=== PATIENT | male | born 1945 | race Asian ===

== ENCOUNTER 2019-11-14 06:59 | Day surgery (SDC) | payer MEDICARE, MEDICAID ==
[~2019-11-14] VITALS: Ht 147.3 cm; Wt 49.9 kg
[2019-11-14 07:46] LABS: BASOPHILS % 0.2 % (0.0-2.0); EOSINOPHILS % 14.6 % (0.0-5.0); HEMATOCRIT. 45.4 % (42.0-52.0); HEMOGLOBIN. 15.2 g/dL (14.0-18.0); LYMPHOCYTES % 39.7 % (20.0-50.0); MEAN CORPUSCULAR HEMOGLOBIN 29.2 pg (28.0-32.0); MEAN CORPUSCULAR VOLUME 87.1 fL (80.0-94.0); MEAN PLATELET VOLUME 8.7 fl (7.4-10.4); NEUTROPHILS % 40.5 % (40.0-76.0); PLATELET 248 x1000/uL (130-400); RED BLOOD CELL COUNT 5.21 mill/uL (4.7-6.1); RED CELL DISTRIBUTION WIDTH 13.6 % (11.6-14.6)
[2019-11-14 07:47] LABS: CLARITY URINE CLEAR (CLEAR); COLOR URINE YELLOW (YELLOW); KETONES URINE NEGATIVE (NEGATIVE); LEUKOCYTE ESTERASE URINE NEGATIVE (NEGATIVE); NITRITE URINE NEGATIVE (NEGATIVE); OCCULT BLOOD URINE NEGATIVE (NEGATIVE); PROTEIN URINE NEGATIVE (NEGATIVE); SPECIFIC GRAVITY URINE 1.007 (1.005-1.030); UROBILINOGEN URINE 0.2 E.U./dL (0.2-1.0)
[2019-11-14 07:52] LABS: CHLORIDE 106 mEq/L (98-107)
[2019-11-14 07:55] LABS: INR 0.9; PARTIAL THROMBOPLASTIN TIME 27.2 sec (23.4-31.0)
[2019-11-14] MEDS ORDERED: BACITRACIN 15GM TUBE TOP ONE (07:58)
[2019-11-14] MEDS ORDERED: LIDOCAINE HCL 1% 20ML VIAL (Pyxis) INJ ONE (07:58)
[2019-11-14] MEDS ORDERED: THROMBIN (BOVINE) 5000 UNITS/VIAL TOP ONE (07:59)
[2019-11-14] MEDS ORDERED: BUPIVACAINE HCL/PF 0.5% (5MG/ML) 10ML ONE (07:59)
[2019-11-14] MEDS ORDERED: BACITRACIN 50,000 UNITS/VIAL ONE (07:59)
[2019-11-14] MEDS ORDERED: LACTATED RINGERS 1,000 ML IV SCH (08:00)
[2019-11-14] MEDS ORDERED: SKIN ADHESIVE 0.7 GM EA TOP ONE (08:03)
[2019-11-14] MEDS ORDERED: HEPARIN SODIUM 1,000 UNIT/1ML VIAL IV ONE (08:03)
[2019-11-14] MEDS ORDERED: CEFAZOLIN 1000MG PREMIX 50 ML IV NR (08:30)
[2019-11-14] MEDS ORDERED: ONDANSETRON HCL 4MG/2ML INJ ONE (08:57)
[2019-11-14] MEDS ORDERED: MIDAZOLAM HCL 2 MG/2 ML VIAL ONE (08:57)
[2019-11-14] MEDS ORDERED: DEXAMETHASONE 4MG/ML 1ML VIAL ONE (08:57)
[2019-11-14] MEDS ORDERED: GLYCOPYRROLATE 0.2 MG/ML 2ML VIAL ONE ×2 (08:57)
[2019-11-14] MEDS ORDERED: ROCURONIUM BROMIDE 10MG/ML VIAL 5ML IV ONE (08:57)
[2019-11-14] MEDS ORDERED: PROPOFOL 200MG/20ML VIAL IV ONE (08:57)
[2019-11-14] MEDS ORDERED: FENTANYL CITRATE/PF 50MCG/ML 2ML VIAL ONE (08:57)
[2019-11-14] MEDS ORDERED: ATOR20TA65 PO (09:04)
[2019-11-14] MEDS ORDERED: METO-539 PO (09:04)
[2019-11-14] MEDS ORDERED: ASPI-1497 PO (09:04)
[2019-11-14] MEDS ORDERED: LABETALOL 5MG/ML SYR 20 MG/4 ML SYRINGE IV ONE (09:10)
[2019-11-14] MEDS ORDERED: LABETALOL HCL 5MG/ML VIAL 20ML IV ONE (09:11)
[2019-11-14] MEDS ORDERED: ONDANSETRON HCL 4MG/2ML INJ IV PRN ×2 (10:45→11:15)
[2019-11-14] MEDS ORDERED: MEPERIDINE HCL/PF 25MG/ML CPJ IV PRN (10:45)
[2019-11-14] MEDS ORDERED: LABETALOL 5MG/ML SYR 20 MG/4 ML SYRINGE IV PRN (10:45)
[2019-11-14] MEDS: HYDROMORPHONE HCL/PF 2MG/ML CPJ IV PRN ×4 (11:05→13:37)
[2019-11-14] MEDS ORDERED: MORPHINE SULFATE 2 MG/ML CPJ (NOT FOR IM USE) IV PRN (11:15)
[2019-11-14] MEDS ORDERED: ACETAMINOPHEN 650MG SUPP PR PRN (11:15)
[2019-11-14] MEDS ORDERED: HYDROCODONE/ACETAMINOPHEN 5/325MG TABLET PO PRN (11:15)
[2019-11-14 13:37] VITALS: BP 113/64
[2019-11-14] MEDS ORDERED: OXYC-100 MT (14:50)
== END 2019-11-14 16:10 | disposition home or self-care (01) ==
LOC: OR 06:59
PROVIDERS: ATTEND Thoracic Surgery (Cardiothoracic Vascular Surgery)
DX: I65.22 Occlusion and stenosis of left carotid artery (principal)
CPT/HCPCS: 35301; 36415; 71045; 80048; 81003; 85025; 85610; 85730; 86850; 86900; 86901; 88304; 88311; 93005; J1100; J1170; J1644; J2250; J2405; J2704; J3010; J3490